=== PATIENT | female | born 1995 | race Caucasian/White ===

== ENCOUNTER 2019-03-25 01:30 | Emergency (ER) | payer OTHER ==
[~2019-03-25] VITALS: Ht 162.6 cm; Wt 58.5 kg
--- NOTE | 2019-03-25 01:42 | NUR ---
ERMD at bedside for MSE
--- NOTE | 2019-03-25 01:51 | NUR ---
LAB AT BEDSIDE ABLE TO TOLERATE THROAT SWAB ABLE TO PROVIDE URINE SAMPLE
[2019-03-25] MEDS ORDERED: DEXAMETHASONE SOD PHOSPHATE 4 MG INJ IM ONE (02:00)
[2019-03-25] MEDS ORDERED: DEXAMETHASONE SOD PHOSPHATE 4 MG INJ ONE (02:04)
[2019-03-25 02:15] LABS: *URINE HCG, QUAL NEGATIVE (NEGATIVE)
[2019-03-25 02:20] LABS: *MONOTEST NEGATIVE (NEGATIVE)
--- NOTE | 2019-03-25 02:48 | NUR ---
Patient discharged to home in stable conditon. Written and verbal after care instructions given. Patient verbalizes understanding of instructions. ambulatory with stable gait all belongings w/ pt
[2019-03-25 02:50] VITALS: BP 110/72
== END 2019-03-25 02:50 | disposition home or self-care (01) ==
LOC: ER 01:34
DX: J02.9 Acute pharyngitis, unspecified (principal); M79.10 Myalgia, unspecified site; Z88.1 Allergy status to other antibiotic agents
CPT/HCPCS: 36415; 84703; 86308; 86403; 87070; 87077; 96372; 99283; J1100; A4663